=== PATIENT | male | born 1985 | race Caucasian/White ===

== ENCOUNTER → 2017-06-29 | Outpatient (CLI) | payer OTHER ==
--- NOTE | 2017-06-29 12:25 | RAD ---
Complete abdominal ultrasound History: Abdominal pain for one month. Begins in the midline and radiates to the right side. Comparison: CT abdomen pelvis 03/22/2013. Procedure: Transabdominal ultrasound images are obtained. Findings: Pancreas is not well visualized. Liver is normal in echogenicity. No focal hepatic masses are identified. Right hepatic lobe measures 15.5 cm in length. Gallbladder is partially contracted. No gallbladder wall thickening, pericholecystic fluid, or cholelithiasis is seen. Common bile duct measures normally at 4 mm in diameter. Spleen is unremarkable. Splenic length is 11.3 cm. Right kidney is normal in size and configuration without hydronephrosis. Left kidney is normal in size and configuration without hydronephrosis. Visualized portions of the aorta and IVC have normal caliber. Inferior to the liver, there is a hypoechoic area which measures 3.8 x 3.3 x 2.2 cm. Some internal echoes are seen. This is just inferior to the liver and superior to the kidney. Impression: 1. Hypoechoic area is seen in the right abdomen inferior to the liver and superior to the kidney. This measures about 3.8 x 2.3 x 2.2 cm. This is nonspecific, and might represent a loop of bowel containing material and fluid. If indicated, CT imaging may better delineate. 2. Otherwise, unremarkable abdominal ultrasound.
== END | disposition home or self-care (01) ==
LOC: US 09:47
PROVIDERS: ATTEND Family Medicine
DX: R10.84 Generalized abdominal pain (principal)
CPT/HCPCS: 76700

== ENCOUNTER → 2017-07-04 | Outpatient (CLI) | payer OTHER ==
[~2017-07-04] MED LIST: IOHEXOL 240 MG/ML 50ML VIAL. ONE; IOHEXOL 300 MG/ML 75 ML VIAL. IV ONE
--- NOTE | 2017-07-04 09:52 | RAD ---
Examination: CT of the abdomen and pelvis with IV contrast History: History of epigastric abdominal pain for 2 months Comparison: 03/22/2013 Technique: Axial CT images of the abdomen pelvis were performed with IV contrast. Coronal and sagittal reformats are performed PQRS Compliance Statement: One or more of the following individualized dose reduction techniques were utilized for this examination: 1. Automated exposure control 2. Adjustment of the mA and/or kV according to patient size 3. Use of iterative reconstruction technique. Findings: The visualized bibasal lungs are clear. No evidence of free air identified in the abdomen. The visualized liver, spleen, adrenals grossly appears unremarkable. The gallbladder is mildly distended. Small hiatal hernia is identified. The visualized pancreas grossly appears unremarkable. The small bowel is nondilated. Feces and gas noted in the colon. Punctate 1 mm intrarenal collecting system calculus identified in the right kidney. The bilateral kidneys enhance symmetrically. No evidence of hydronephrosis. The urinary bladder is mildly distended. The caliber of the aorta grossly appears unremarkable. No evidence of lytic bony destructive lesion. Impression: 1. No acute intra-abdominal findings. 2. Punctate 1 mm intrarenal collecting system calculus right kidney. 3. Small hiatal hernia.
== END | disposition home or self-care (01) ==
LOC: CT 08:00
PROVIDERS: ATTEND Family Medicine
DX: N20.0 Calculus of kidney (principal); K44.9 Diaphragmatic hernia without obstruction or gangrene
CPT/HCPCS: 74177; Q9966; Q9967

== ENCOUNTER → 2020-10-30 | Outpatient (CLI) | payer BC ==
--- NOTE | 2020-10-30 10:57 | RAD ---
CT HEAD WITHOUT CONTRAST 10/30/2020 10:43 AM Indication: Migraine headache, history of several concussions playing football: Comparison: None Procedure: Multidetector CT imaging of the head was performed without the administration of contrast. Findings: There is no evidence of acute intracranial hemorrhage. There is no evidence of acute territ orial infarction. Please note that CT is limited for evaluation of acute ischemia. No mass effect or midline shift is identified . The ventricles and basilar cisterns have an appropriate appearance. No abnormal extra-axial fluid collections are seen. No acute osseous changes are identified. Impression: No evidence of acute intracranial abnormality CT DOSING PQRS STATEMENT: One or more of the following individualized dose reduction techniques were utilized for this examinat ion: 1. Automated exposure control 2. Adjustment of the mA and/or kV according to patient size 3. Use of iterative reconstruction technique Electronically signed by: Asim Kirby MD (10/30/2020 10:55 AM) [id number]
== END ==
LOC: CT 10:36
PROVIDERS: ATTEND Physician Assistant
DX: G43.909 Migraine, unspecified, not intractable, without status migrainosus (principal)
CPT/HCPCS: 70450